=== PATIENT | female | born 1990 | race Hispanic/Latino ===

== ENCOUNTER 2020-09-25 16:34 | Emergency (ER) | payer SELFPAY ==
[~2020-09-25] VITALS: Ht 157.5 cm; Wt 113.4 kg
[2020-09-25] MEDS ORDERED: SODIUM CHLORIDE 0.9% 1000ML 1,000 ML IV SCH (17:00)
[2020-09-25] MEDS ORDERED: SODIUM CHLORIDE 0.9% 1000ML 1,000 ML ONE (17:06)
[2020-09-25] MEDS ORDERED: ACETAMINOPHEN 325 MG TAB PO ONE (17:30)
[2020-09-25 18:54] VITALS: BP 139/90
== END 2020-09-25 18:55 | disposition home or self-care (01) ==
LOC: ER 16:45
DX: U07.1 COVID-19 (principal); J18.9 Pneumonia, unspecified organism
CPT/HCPCS: 71045; 93005; 99283; J7030

== ENCOUNTER 2020-09-27 17:55 | Inpatient (IN) | payer SELFPAY ==
[~2020-09-27] VITALS: Ht 157.5 cm; Wt 128.4 kg
[2020-09-27] MEDS ORDERED: ONDANSETRON HCL INJ 2MG/ML 2ML 2 MG/ML VIAL IV STA (18:24)
[2020-09-27] MEDS ORDERED: DEXAMETHASONE SOD PHOS 10 MG/1 ML VIAL IV ONE (18:30)
[2020-09-27] MEDS ORDERED: ASPIRIN 81 MG CHEW TAB PO ONE ×2 (18:30→20:15)
[2020-09-27 18:39] LABS: BASOPHILS % 0.2 % (0.0-1.0); HEMATOCRIT 41.5 % (34.2-44.1); HEMOGLOBIN 13.4 g/dL (12.0-16.0); LYMPHOCYTES # (AUTO) 0.8 (1.0-3.2); LYMPHOCYTES % 12.9 % (18.0-39.1); MEAN CORPUSCULAR HGB CONC 32.3 g/dL (31-35); MEAN CORPUSCULAR VOLUME 80.6 fL (81-99); MONOCYTES # (AUTO) 0.2 (0.2-0.8); MONOCYTES % 2.7 % (4.4-11.3); NEUTROPHILS # (AUTO) 4.9 (2.1-6.9); NEUTROPHILS % 83.7 % (38.7-80.0); PLATELET COUNT 273 x10e3/uL (140-360); RED BLOOD COUNT 5.15 x10e6/uL (3.6-5.1); RED CELL DISTRIBUTION WIDTH 15.6 % (11.7-14.4)
[2020-09-27 18:57] LABS: ALANINE AMINOTRANSFERASE 37 IU/L (0-55); ALBUMIN 3.5 g/dL (3.5-5.0); ALBUMIN/GLOBULIN RATIO 0.8 (0.8-2.0); ALKALINE PHOSPHATASE 77 IU/L (40-150); ANION GAP 23.5 mmol/L (8-16); CALCIUM 8.3 mg/dL (8.4-10.2); CARBON DIOXIDE 17 mmol/L (22-29); CHLORIDE 100 mmol/L (98-107); CREATINE KINASE 75 IU/L (29-168); CREATININE, SERUM 0.74 mg/dL (0.57-1.11); EST GLOMERULAR FILTRATION RATE > 60 ML/MIN (60-); GLUCOSE 333 mg/dL (74-118); POTASSIUM 3.5 mmol/L (3.5-5.1); SODIUM 137 mmol/L (136-145)
[2020-09-27 19:12] LABS: BLOOD UREA NITROGEN < 5 mg/dL (7-26); BUN/CREATININE RATIO 7 (6-25)
[2020-09-27] MEDS ORDERED: AZITHROMYCIN 500MG/NS 250 ML 250 ML IV SCH (22:45)
[2020-09-27] MEDS ORDERED: METOPROLOL TARTRATE INJ 1 MG/ML VIAL IV PRN (22:45)
[2020-09-28] VITALS (7 sets, daily range): BP systolic 109–128; BP diastolic 51–74
[2020-09-28] MEDS: CEFTRIAXONE SOD 1 GM/NS 50 ML 50 ML IV SCH ×2 (00:02→22:46)
[2020-09-28] MEDS: ZINC SULFATE 220 MG CAP PO SCH ×2 (00:25→09:04)
[2020-09-28] MEDS: ENOXAPARIN 30 MG/0.3 ML SYR SC SCH ×3 (00:26→21:00)
[2020-09-28] MEDS: CHOLECALCIFEROL 400 UNIT TAB PO SCH ×2 (02:12→09:04)
[2020-09-28 03:16] LABS: BASOPHILS % 0.2 % (0.0-1.0); HEMATOCRIT 40.5 % (34.2-44.1); HEMOGLOBIN 12.9 g/dL (12.0-16.0); LYMPHOCYTES # (AUTO) 0.5 (1.0-3.2); LYMPHOCYTES % 9.2 % (18.0-39.1); MEAN CORPUSCULAR HEMOGLOBIN 25.6 pg (28-32); MEAN CORPUSCULAR HGB CONC 31.9 g/dL (31-35); MEAN CORPUSCULAR VOLUME 80.4 fL (81-99); MONOCYTES # (AUTO) 0.1 (0.2-0.8); MONOCYTES % 1.3 % (4.4-11.3); NEUTROPHILS # (AUTO) 4.8 (2.1-6.9); NEUTROPHILS % 88.7 % (38.7-80.0); PLATELET COUNT 285 x10e3/uL (140-360); RED BLOOD COUNT 5.04 x10e6/uL (3.6-5.1); RED CELL DISTRIBUTION WIDTH 15.6 % (11.7-14.4)
[2020-09-28 03:37] LABS: CREATINE KINASE MB 0.4 ng/mL (0-5.0)
[2020-09-28 03:50] LABS: ALANINE AMINOTRANSFERASE 34 IU/L (0-55); ALBUMIN 3.4 g/dL (3.5-5.0); ALBUMIN/GLOBULIN RATIO 0.8 (0.8-2.0); ALKALINE PHOSPHATASE 77 IU/L (40-150); ANION GAP 24.9 mmol/L (8-16); BLOOD UREA NITROGEN 8 mg/dL (7-26); BUN/CREATININE RATIO 10 (6-25); CALCIUM 8.5 mg/dL (8.4-10.2); CARBON DIOXIDE 14 mmol/L (22-29); CHLORIDE 103 mmol/L (98-107); CREATININE, SERUM 0.81 mg/dL (0.57-1.11); EST GLOMERULAR FILTRATION RATE > 60 ML/MIN (60-); POTASSIUM 3.9 mmol/L (3.5-5.1); SODIUM 138 mmol/L (136-145)
[2020-09-28 03:53] LABS: GLUCOSE 443 mg/dL (74-118)
[2020-09-28] MEDS ORDERED: INSULIN REGULAR, HUMAN 100 UNIT/1 ML 3ML VIAL SQ ONE (04:45)
[2020-09-28] MEDS ORDERED: INSULIN REGULAR, HUMAN 100 UNIT/1 ML 3ML VIAL ONE (04:53)
[2020-09-28] MEDS ORDERED: SODIUM CHLORIDE 0.9% 1000ML 1,000 ML IV STA (06:14)
[2020-09-28] MEDS ORDERED: INSULIN REGULAR, HUMAN 100 UNIT/1 ML 3ML VIAL IV ONE (06:15)
[2020-09-28] MEDS ORDERED: DEXTROSE 50% SYRINGE 50 ML IV PRN ×3 (06:15→14:00)
[2020-09-28] MEDS ORDERED: INSULIN REGULAR, HUMAN 3ML VL 100 UNIT in SODIUM CHLORIDE 0.9% 100 ML 99 ML IV SCH ×4 (06:35→08:30)
[2020-09-28] MEDS ORDERED: SODIUM CHLORIDE 0.9% 100 ML ONE (07:35)
[2020-09-28] MEDS ORDERED: POTASSIUM CHLORIDE 20MEQ/100ML 200 ML IV PRN (08:00)
[2020-09-28] MEDS ORDERED: MAGNESIUM SULF 1GRAM/DEXTROSE 100 ML IV PRN (08:00)
[2020-09-28] MEDS: ALBUTEROL SULFATE HFA 8GM INHALATION AEROSOL INH SCH ×3 (08:00→22:00)
[2020-09-28] MEDS: IPRATROPIUM BROMIDE INHALER 12.9 GM INH INH SCH ×3 (08:00→22:00)
[2020-09-28] MEDS ORDERED: SODIUM CHLORIDE 0.9% 1000ML 1,000 ML IV ONE (08:00)
[2020-09-28] MEDS ORDERED: DEXTROSE 5%/0.45% SOD CHL 1,000 ML IV SCH (08:00)
[2020-09-28 09:00] LABS: CLARITY,URINE CLEAR (CLEAR); COLOR,URINE YELLOW (YELLOW)
[2020-09-28] MEDS ORDERED: ASCORBIC ACID 500 MG TAB PO SCH (09:00)
[2020-09-28 09:01] LABS: LEUKOCYTE ESTERASE ,URINE NEGATIVE (NEGATIVE); NITRITE,URINE NEGATIVE (NEGATIVE); PROTEIN,URINE DIPSTICK 1+ (NEGATIVE); URINE UROBILINOGEN 0.2 mg/dL (0.2 - 1)
[2020-09-28 09:02] LABS: KETONES,URINE 3+ (NEGATIVE)
[2020-09-28] MEDS: DEXAMETHASONE SOD PHOS INJ 4 MG/ML VIAL IV SCH (09:03)
[2020-09-28 09:16] LABS: BACTERIA,URINE MANY /HPF; EPITHELIAL CELLS,URINE FEW /LPF; TRANSITIONAL EPI CELLS,URINE FEW
[2020-09-28 09:17] LABS: HYALINE CASTS 0-1 (0-1); RENAL EPITHELIAL CELLS,URINE FEW
[2020-09-28 09:41] LABS: ABG HCO3 12 mmol/L (22-26); ABG PCO2 21 mmHg (35-45); ABG PH 7.35 (7.35-7.45); ABG PO2 74 mmHg (80-105); ABG TCO2 12
[2020-09-28 09:51] LABS: ANION GAP 22.4 mmol/L (8-16); BLOOD UREA NITROGEN 9 mg/dL (7-26); BUN/CREATININE RATIO 11 (6-25); CALCIUM 8.2 mg/dL (8.4-10.2); CARBON DIOXIDE 13 mmol/L (22-29); CHLORIDE 107 mmol/L (98-107); CREATININE, SERUM 0.83 mg/dL (0.57-1.11); EST GLOMERULAR FILTRATION RATE > 60 ML/MIN (60-); GLUCOSE 359 mg/dL (74-118); MAGNESIUM 2.4 MG/DL (1.3-2.1); POTASSIUM 3.4 mmol/L (3.5-5.1); SODIUM 139 mmol/L (136-145)
[2020-09-28] MEDS ORDERED: INSULIN LISPRO 100 UNIT/1 ML 3ML VIAL SQ SCH (11:30)
[2020-09-28] MEDS: SODIUM CHLORIDE 0.9% 1000ML 1,000 ML IV SCH ×3 (12:00→16:00)
[2020-09-28 12:38] LABS: ANION GAP 23.3 mmol/L (8-16); BLOOD UREA NITROGEN 8 mg/dL (7-26); BUN/CREATININE RATIO 11 (6-25); CALCIUM 8.4 mg/dL (8.4-10.2); CARBON DIOXIDE 12 mmol/L (22-29); CHLORIDE 109 mmol/L (98-107); CREATININE, SERUM 0.75 mg/dL (0.57-1.11); EST GLOMERULAR FILTRATION RATE > 60 ML/MIN (60-); GLUCOSE 255 mg/dL (74-118); MAGNESIUM 2.3 MG/DL (1.3-2.1); POTASSIUM 3.3 mmol/L (3.5-5.1); SODIUM 141 mmol/L (136-145)
[2020-09-28 13:07] LABS: CREATINE KINASE MB 0.4 ng/mL (0-5.0)
[2020-09-28] MEDS ORDERED: REMDESIVIR 200MG/NS 100ML 200 MG in SODIUM CHLORIDE 0.9% 100 ML 100 ML IV ONE (16:00)
[2020-09-28] MEDS: DEXTROSE 5%/0.45% SOD CHL 1,000 ML IV SCH (16:33)
[2020-09-28 16:45] LABS: ANION GAP 17.9 mmol/L (8-16); BLOOD UREA NITROGEN 7 mg/dL (7-26); BUN/CREATININE RATIO 10 (6-25); CALCIUM 8.3 mg/dL (8.4-10.2); CARBON DIOXIDE 14 mmol/L (22-29); CHLORIDE 112 mmol/L (98-107); CREATININE, SERUM 0.73 mg/dL (0.57-1.11); EST GLOMERULAR FILTRATION RATE > 60 ML/MIN (60-); GLUCOSE 204 mg/dL (74-118); MAGNESIUM 2.3 MG/DL (1.3-2.1); POTASSIUM 3.9 mmol/L (3.5-5.1); SODIUM 140 mmol/L (136-145)
[2020-09-28] MEDS ORDERED: REMDESIVIR 200MG/NS 100ML 200 MG IV SCH (16:45)
[2020-09-28] MEDS: ASCORBIC ACID 500 MG TAB PO SCH (16:57)
[2020-09-29] VITALS (24 sets, daily range): BP systolic 110–138; BP diastolic 59–80
[2020-09-29] MEDS: DEXTROSE 5%/0.45% SOD CHL 1,000 ML IV SCH ×3 (00:30→17:01)
[2020-09-29 01:02] LABS: ANION GAP 14.6 mmol/L (8-16); BLOOD UREA NITROGEN 7 mg/dL (7-26); BUN/CREATININE RATIO 10 (6-25); CARBON DIOXIDE 18 mmol/L (22-29); CHLORIDE 109 mmol/L (98-107); CREATININE, SERUM 0.71 mg/dL (0.57-1.11); EST GLOMERULAR FILTRATION RATE > 60 ML/MIN (60-); GLUCOSE 325 mg/dL (74-118); MAGNESIUM 2.2 MG/DL (1.3-2.1); POTASSIUM 3.6 mmol/L (3.5-5.1); SODIUM 138 mmol/L (136-145)
[2020-09-29 04:38] LABS: HEMOGLOBIN 11.4 g/dL (12.0-16.0); LYMPHOCYTES # (AUTO) 0.8 (1.0-3.2); LYMPHOCYTES % 9.9 % (18.0-39.1); MEAN CORPUSCULAR HEMOGLOBIN 25.4 pg (28-32); MEAN CORPUSCULAR HGB CONC 31.7 g/dL (31-35); MEAN CORPUSCULAR VOLUME 80.4 fL (81-99); MONOCYTES # (AUTO) 0.3 (0.2-0.8); MONOCYTES % 4.2 % (4.4-11.3); NEUTROPHILS # (AUTO) 6.5 (2.1-6.9); NEUTROPHILS % 85.5 % (38.7-80.0); PLATELET COUNT 333 x10e3/uL (140-360); RED BLOOD COUNT 4.48 x10e6/uL (3.6-5.1)
[2020-09-29 05:03] LABS: ALANINE AMINOTRANSFERASE 29 IU/L (0-55); ALBUMIN 2.9 g/dL (3.5-5.0); ALBUMIN/GLOBULIN RATIO 0.8 (0.8-2.0); ALKALINE PHOSPHATASE 67 IU/L (40-150); ANION GAP 13.5 mmol/L (8-16); BLOOD UREA NITROGEN 7 mg/dL (7-26); BUN/CREATININE RATIO 10 (6-25); CALCIUM 7.9 mg/dL (8.4-10.2); CARBON DIOXIDE 19 mmol/L (22-29); CHLORIDE 108 mmol/L (98-107); CREATININE, SERUM 0.67 mg/dL (0.57-1.11); EST GLOMERULAR FILTRATION RATE > 60 ML/MIN (60-); GLUCOSE 313 mg/dL (74-118); POTASSIUM 3.5 mmol/L (3.5-5.1); SODIUM 137 mmol/L (136-145)
[2020-09-29] MEDS: IPRATROPIUM BROMIDE INHALER 12.9 GM INH INH SCH ×3 (06:00→22:00)
[2020-09-29] MEDS: ALBUTEROL SULFATE HFA 8GM INHALATION AEROSOL INH SCH ×3 (06:00→22:15)
[2020-09-29] MEDS: DEXAMETHASONE SOD PHOS INJ 4 MG/ML VIAL IV SCH (08:54)
[2020-09-29] MEDS: ASCORBIC ACID 500 MG TAB PO SCH ×2 (08:55→17:01)
[2020-09-29] MEDS: AZITHROMYCIN 500MG/NS 250 ML 250 ML IV SCH (08:55)
[2020-09-29] MEDS: CHOLECALCIFEROL 400 UNIT TAB PO SCH (08:55)
[2020-09-29] MEDS: ENOXAPARIN 30 MG/0.3 ML SYR SC SCH ×2 (08:55→21:26)
[2020-09-29] MEDS: ZINC SULFATE 220 MG CAP PO SCH (08:55)
[2020-09-29] MEDS ORDERED: ZINC SULFATE 220 MG CAP PO SCH (09:00)
[2020-09-29] MEDS ORDERED: CEFTRIAXONE SOD 2 GM/NS 100 ML 100 ML IV SCH (09:00)
[2020-09-29] MEDS ORDERED: POTASSIUM CHLORIDE 20MEQ/100ML 100 ML IV PRN (09:15)
[2020-09-29] MEDS ORDERED: POTASSIUM CHLORIDE 20MEQ/100ML 200 ML IV ONE (09:15)
[2020-09-29] MEDS ORDERED: CALCIUM CARBONATE 500 MG CHEWABLE TABS PO PRN (09:45)
[2020-09-29] MEDS: REMDESIVIR 100MG/NS 100ML 100 MG in SODIUM CHLORIDE 0.9% 100 ML 100 ML IV SCH (17:01)
[2020-09-29] MEDS: GUAIFENESIN 200 MG/10 ML UDC PO PRN (20:05)
[2020-09-29] MEDS ORDERED: INSULIN GLARGINE 100 UNITS/ML VIAL SQ SCH (21:00)
[2020-09-29] MEDS: CEFTRIAXONE SOD 2 GM/NS 100 ML 100 ML IV SCH (23:14)
[2020-09-29] MEDS: DEXMEDETOMIDINE HCL 200 MCG in SODIUM CHLORIDE 0.9% 50ML 48 ML IV PRN (23:45)
[2020-09-29] MEDS ORDERED: DEXMEDETOMIDINE 200MCG/NS 50ML 50 ML IV ONE (23:49)
[2020-09-30] VITALS (24 sets, daily range): BP systolic 89–148; BP diastolic 47–84
[2020-09-30] MEDS: DEXTROSE 5%/0.45% SOD CHL 1,000 ML IV SCH ×2 (01:25→09:33)
[2020-09-30] MEDS: DEXMEDETOMIDINE HCL 200 MCG in SODIUM CHLORIDE 0.9% 50ML 48 ML IV PRN (01:51)
[2020-09-30] MEDS ORDERED: DEXMEDETOMIDINE 200MCG/NS 50ML 50 ML IV ONE (01:58)
[2020-09-30] MEDS: GUAIFENESIN 200 MG/10 ML UDC PO PRN (02:10)
[2020-09-30 04:46] LABS: HEMATOCRIT 36.2 % (34.2-44.1); HEMOGLOBIN 11.7 g/dL (12.0-16.0); LYMPHOCYTES # (AUTO) 0.8 (1.0-3.2); LYMPHOCYTES % 13.2 % (18.0-39.1); MEAN CORPUSCULAR HEMOGLOBIN 26.4 pg (28-32); MEAN CORPUSCULAR HGB CONC 32.3 g/dL (31-35); MEAN CORPUSCULAR VOLUME 81.5 fL (81-99); MONOCYTES # (AUTO) 0.4 (0.2-0.8); MONOCYTES % 6.3 % (4.4-11.3); NEUTROPHILS # (AUTO) 4.7 (2.1-6.9); NEUTROPHILS % 79.8 % (38.7-80.0); PLATELET COUNT 316 x10e3/uL (140-360); RED BLOOD COUNT 4.44 x10e6/uL (3.6-5.1); RED CELL DISTRIBUTION WIDTH 15.8 % (11.7-14.4)
[2020-09-30 05:11] LABS: ALANINE AMINOTRANSFERASE 16 IU/L (0-55); ALBUMIN 2.7 g/dL (3.5-5.0); ALBUMIN/GLOBULIN RATIO 0.8 (0.8-2.0); ALKALINE PHOSPHATASE 61 IU/L (40-150); ANION GAP 13.4 mmol/L (8-16); BLOOD UREA NITROGEN 6 mg/dL (7-26); BUN/CREATININE RATIO 9 (6-25); CALCIUM 7.6 mg/dL (8.4-10.2); CARBON DIOXIDE 22 mmol/L (22-29); CHLORIDE 111 mmol/L (98-107); CREATININE, SERUM 0.64 mg/dL (0.57-1.11); EST GLOMERULAR FILTRATION RATE > 60 ML/MIN (60-); GLUCOSE 341 mg/dL (74-118); POTASSIUM 3.4 mmol/L (3.5-5.1); SODIUM 143 mmol/L (136-145)
[2020-09-30] MEDS: ALBUTEROL SULFATE HFA 8GM INHALATION AEROSOL INH SCH ×3 (06:00→23:05)
[2020-09-30] MEDS: IPRATROPIUM BROMIDE INHALER 12.9 GM INH INH SCH ×3 (06:00→22:00)
[2020-09-30] MEDS ORDERED: POTASSIUM CHLORIDE 20MEQ/100ML 200 ML IV ONE (09:15)
[2020-09-30] MEDS: DEXAMETHASONE SOD PHOS INJ 4 MG/ML VIAL IV SCH (09:32)
[2020-09-30] MEDS: ASCORBIC ACID 500 MG TAB PO SCH ×2 (09:33→17:27)
[2020-09-30] MEDS: CHOLECALCIFEROL 400 UNIT TAB PO SCH (09:33)
[2020-09-30] MEDS: ZINC SULFATE 220 MG CAP PO SCH (09:33)
[2020-09-30] MEDS: AZITHROMYCIN 500MG/NS 250 ML 250 ML IV SCH (09:33)
[2020-09-30] MEDS: ENOXAPARIN 30 MG/0.3 ML SYR SC SCH ×2 (09:33→20:25)
[2020-09-30] MEDS: REMDESIVIR 100MG/NS 100ML 100 MG in SODIUM CHLORIDE 0.9% 100 ML 100 ML IV SCH (17:28)
[2020-09-30] MEDS: INSULIN REGULAR, HUMAN 3ML VL 100 UNIT in SODIUM CHLORIDE 0.9% 99 ML IV SCH ×4 (20:24→23:29)
[2020-09-30] MEDS: INSULIN GLARGINE 100 UNITS/ML VIAL SQ SCH (20:26)
[2020-09-30] MEDS ORDERED: SODIUM CHLORIDE 0.9% 1000ML 1,000 ML ONE (20:42)
[2020-09-30] MEDS: LORAZEPAM INJ 2 MG/ML VIAL IV PRN (21:16)
[2020-09-30] MEDS: GUAIFENESIN/CODEINE 10 ML CUP PO PRN (21:16)
[2020-09-30] MEDS: CEFTRIAXONE SOD 2 GM/NS 100 ML 100 ML IV SCH (23:30)
[2020-10-01] VITALS (24 sets, daily range): BP systolic 119–144; BP diastolic 41–89
[2020-10-01] MEDS: GUAIFENESIN/CODEINE 10 ML CUP PO PRN (04:28)
[2020-10-01] MEDS: LORAZEPAM INJ 2 MG/ML VIAL IV PRN ×2 (04:28→23:35)
[2020-10-01] MEDS: INSULIN REGULAR, HUMAN 3ML VL 100 UNIT in SODIUM CHLORIDE 0.9% 99 ML IV SCH ×2 (04:29)
[2020-10-01] MEDS ORDERED: SODIUM CHLORIDE 0.9% 1000ML 1,000 ML IV SCH (05:30)
[2020-10-01 06:09] LABS: BASOPHILS % 0.2 % (0.0-1.0); EOSINOPHILS % 0.2 % (0.0-6.0); HEMATOCRIT 35.8 % (34.2-44.1); HEMOGLOBIN 11.5 g/dL (12.0-16.0); LYMPHOCYTES # (AUTO) 1.2 (1.0-3.2); LYMPHOCYTES % 21.7 % (18.0-39.1); MEAN CORPUSCULAR HEMOGLOBIN 26.1 pg (28-32); MEAN CORPUSCULAR HGB CONC 32.1 g/dL (31-35); MEAN CORPUSCULAR VOLUME 81.2 fL (81-99); MONOCYTES # (AUTO) 0.4 (0.2-0.8); MONOCYTES % 7.3 % (4.4-11.3); NEUTROPHILS # (AUTO) 3.6 (2.1-6.9); NEUTROPHILS % 67.6 % (38.7-80.0); PLATELET COUNT 343 x10e3/uL (140-360); RED BLOOD COUNT 4.41 x10e6/uL (3.6-5.1); RED CELL DISTRIBUTION WIDTH 15.7 % (11.7-14.4)
[2020-10-01 06:31] LABS: INR 1.05; PROTHROMBIN TIME 14.2 seconds (11.9-14.5)
[2020-10-01 06:32] LABS: PARTIAL THROMBOPLASTIN TIME 27.5 seconds (23.8-35.5)
[2020-10-01 06:47] LABS: ALANINE AMINOTRANSFERASE 17 IU/L (0-55); ALBUMIN 2.7 g/dL (3.5-5.0); ALBUMIN/GLOBULIN RATIO 0.8 (0.8-2.0); ALKALINE PHOSPHATASE 64 IU/L (40-150); BLOOD UREA NITROGEN 7 mg/dL (7-26); BUN/CREATININE RATIO 13 (6-25); CALCIUM 7.6 mg/dL (8.4-10.2); CARBON DIOXIDE 25 mmol/L (22-29); CHLORIDE 108 mmol/L (98-107); CREATININE, SERUM 0.56 mg/dL (0.57-1.11); EST GLOMERULAR FILTRATION RATE > 60 ML/MIN (60-); GLUCOSE 169 mg/dL (74-118); SODIUM 144 mmol/L (136-145)
[2020-10-01 07:07] LABS: PHOSPHORUS 2.6 MG/DL (2.3-4.7)
[2020-10-01] MEDS: DEXAMETHASONE SOD PHOS INJ 4 MG/ML VIAL IV SCH (07:45)
[2020-10-01] MEDS: AZITHROMYCIN 500MG/NS 250 ML 250 ML IV SCH (07:45)
[2020-10-01] MEDS: ASCORBIC ACID 500 MG TAB PO SCH ×2 (07:46→17:14)
[2020-10-01] MEDS: CHOLECALCIFEROL 400 UNIT TAB PO SCH (07:46)
[2020-10-01] MEDS: ZINC SULFATE 220 MG CAP PO SCH (07:46)
[2020-10-01] MEDS: ENOXAPARIN 30 MG/0.3 ML SYR SC SCH ×2 (07:46→21:30)
[2020-10-01] MEDS: ALBUTEROL SULFATE HFA 8GM INHALATION AEROSOL INH SCH ×2 (08:24→23:55)
[2020-10-01] MEDS: IPRATROPIUM BROMIDE INHALER 12.9 GM INH INH SCH ×3 (08:24→22:00)
[2020-10-01] MEDS ORDERED: POTASSIUM CHLORIDE 20MEQ/100ML 200 ML IV ONE (09:45)
[2020-10-01] MEDS: POTASSIUM CHLORIDE 20MEQ/100ML 100 ML IV SCH ×2 (14:54→14:55)
[2020-10-01] MEDS: REMDESIVIR 100MG/NS 100ML 100 MG in SODIUM CHLORIDE 0.9% 100 ML 100 ML IV SCH (17:13)
[2020-10-01 17:49] LABS: ABG HCO3 24 mmol/L (22-26); ABG PCO2 33 mmHg (35-45); ABG PH 7.47 (7.35-7.45); ABG PO2 65 mmHg (80-105); ABG TCO2 25
[2020-10-01] MEDS: INSULIN GLARGINE 100 UNITS/ML VIAL SQ SCH (21:30)
[2020-10-01] MEDS: POTASSIUM CHLORIDE 20MEQ/100ML 100 ML IV PRN (21:30)
[2020-10-01] MEDS: CEFTRIAXONE SOD 2 GM/NS 100 ML 100 ML IV SCH (23:00)
[2020-10-02] VITALS (25 sets, daily range): BP systolic 111–133; BP diastolic 59–83
[2020-10-02] MEDS: ALBUTEROL SULFATE HFA 8GM INHALATION AEROSOL INH SCH ×3 (00:10→14:00)
[2020-10-02 04:37] LABS: BASOPHILS % 0.3 % (0.0-1.0); EOSINOPHILS % 0.7 % (0.0-6.0); HEMATOCRIT 35.3 % (34.2-44.1); HEMOGLOBIN 11.3 g/dL (12.0-16.0); LYMPHOCYTES # (AUTO) 1.5 (1.0-3.2); LYMPHOCYTES % 24.3 % (18.0-39.1); MEAN CORPUSCULAR VOLUME 81.3 fL (81-99); MONOCYTES # (AUTO) 0.5 (0.2-0.8); NEUTROPHILS # (AUTO) 3.7 (2.1-6.9); NEUTROPHILS % 61.7 % (38.7-80.0); PLATELET COUNT 338 x10e3/uL (140-360); RED BLOOD COUNT 4.34 x10e6/uL (3.6-5.1); RED CELL DISTRIBUTION WIDTH 15.4 % (11.7-14.4)
[2020-10-02 04:58] LABS: ALANINE AMINOTRANSFERASE 18 IU/L (0-55); ALBUMIN 2.7 g/dL (3.5-5.0); ALBUMIN/GLOBULIN RATIO 0.9 (0.8-2.0); ALKALINE PHOSPHATASE 63 IU/L (40-150); ANION GAP 11.1 mmol/L (8-16); BLOOD UREA NITROGEN 6 mg/dL (7-26); BUN/CREATININE RATIO 12 (6-25); CALCIUM 7.5 mg/dL (8.4-10.2); CARBON DIOXIDE 27 mmol/L (22-29); CHLORIDE 106 mmol/L (98-107); CREATININE, SERUM 0.52 mg/dL (0.57-1.11); EST GLOMERULAR FILTRATION RATE > 60 ML/MIN (60-); GLUCOSE 147 mg/dL (74-118); POTASSIUM 3.1 mmol/L (3.5-5.1); SODIUM 141 mmol/L (136-145)
[2020-10-02] MEDS: POTASSIUM CHLORIDE 20MEQ/100ML 100 ML IV PRN (05:35)
[2020-10-02] MEDS: GUAIFENESIN/CODEINE 10 ML CUP PO PRN ×3 (05:35→23:05)
[2020-10-02] MEDS: IPRATROPIUM BROMIDE INHALER 12.9 GM INH INH SCH ×3 (06:00→22:00)
[2020-10-02] MEDS: AZITHROMYCIN 500MG/NS 250 ML 250 ML IV SCH (08:04)
[2020-10-02] MEDS: ZINC SULFATE 220 MG CAP PO SCH (08:04)
[2020-10-02] MEDS: DEXAMETHASONE SOD PHOS INJ 4 MG/ML VIAL IV SCH (08:04)
[2020-10-02] MEDS: CHOLECALCIFEROL 400 UNIT TAB PO SCH (08:04)
[2020-10-02] MEDS: ASCORBIC ACID 500 MG TAB PO SCH ×2 (08:04→17:21)
[2020-10-02] MEDS: ENOXAPARIN 30 MG/0.3 ML SYR SC SCH ×2 (08:04→21:10)
[2020-10-02 12:28] LABS: INR 1.01; PROTHROMBIN TIME 13.8 seconds (11.9-14.5)
[2020-10-02 12:29] LABS: PARTIAL THROMBOPLASTIN TIME 24.3 seconds (23.8-35.5)
[2020-10-02] MEDS: REMDESIVIR 100MG/NS 100ML 100 MG in SODIUM CHLORIDE 0.9% 100 ML 100 ML IV SCH (17:21)
[2020-10-02] MEDS: INSULIN GLARGINE 100 UNITS/ML VIAL SQ SCH (21:10)
[2020-10-02 21:39] LABS: MAGNESIUM 2.1 MG/DL (1.3-2.1); POTASSIUM 3.4 mmol/L (3.5-5.1)
[2020-10-02] MEDS: CEFTRIAXONE SOD 2 GM/NS 100 ML 100 ML IV SCH (22:30)
[2020-10-02] MEDS: LORAZEPAM INJ 2 MG/ML VIAL IV PRN (23:05)
[2020-10-03] VITALS (25 sets, daily range): BP systolic 103–136; BP diastolic 50–83
[2020-10-03] MEDS ORDERED: DEXTROSE 5%/0.45% SOD CHL 1,000 ML IV ONE (01:02)
[2020-10-03 04:54] LABS: BASOPHILS % 0.3 % (0.0-1.0); EOSINOPHILS # (AUTO) 0.1 (0.0-0.4); EOSINOPHILS % 0.9 % (0.0-6.0); HEMATOCRIT 37.2 % (34.2-44.1); HEMOGLOBIN 11.7 g/dL (12.0-16.0); LYMPHOCYTES # (AUTO) 1.3 (1.0-3.2); LYMPHOCYTES % 20.8 % (18.0-39.1); MEAN CORPUSCULAR HEMOGLOBIN 25.6 pg (28-32); MEAN CORPUSCULAR HGB CONC 31.5 g/dL (31-35); MEAN CORPUSCULAR VOLUME 81.4 fL (81-99); MONOCYTES # (AUTO) 0.4 (0.2-0.8); MONOCYTES % 6.6 % (4.4-11.3); NEUTROPHILS # (AUTO) 4.2 (2.1-6.9); PLATELET COUNT 382 x10e3/uL (140-360); RED BLOOD COUNT 4.57 x10e6/uL (3.6-5.1); RED CELL DISTRIBUTION WIDTH 15.6 % (11.7-14.4)
[2020-10-03 05:20] LABS: ALANINE AMINOTRANSFERASE 21 IU/L (0-55); ALBUMIN 2.9 g/dL (3.5-5.0); ALKALINE PHOSPHATASE 66 IU/L (40-150); ANION GAP 13.1 mmol/L (8-16); BLOOD UREA NITROGEN 8 mg/dL (7-26); BUN/CREATININE RATIO 15 (6-25); CALCIUM 7.8 mg/dL (8.4-10.2); CARBON DIOXIDE 26 mmol/L (22-29); CHLORIDE 105 mmol/L (98-107); CREATININE, SERUM 0.54 mg/dL (0.57-1.11); EST GLOMERULAR FILTRATION RATE > 60 ML/MIN (60-); GLUCOSE 137 mg/dL (74-118); POTASSIUM 3.1 mmol/L (3.5-5.1); SODIUM 141 mmol/L (136-145)
[2020-10-03] MEDS: IPRATROPIUM BROMIDE INHALER 12.9 GM INH INH SCH ×3 (06:00→22:00)
[2020-10-03] MEDS: ALBUTEROL SULFATE HFA 8GM INHALATION AEROSOL INH SCH ×4 (06:00→23:20)
[2020-10-03 09:15] LABS: ANISOCYTOSIS SLIGHT; LYMPHOCYTES % (MANUAL) 15 % (19-48); MONOCYTES % (MANUAL) 8 % (3.4-9.0); NEUTROPHILS % (MANUAL) 77 % (40-74); PLATELET ESTIMATE SLIGHTLY INCREASED; RBC MORPHOLOGY COMMENT NORMAL
[2020-10-03 09:16] LABS: PLATELET MORPHOLOGY COMMENT FEW LARGE
[2020-10-03] MEDS: DEXAMETHASONE SOD PHOS INJ 4 MG/ML VIAL IV SCH (10:22)
[2020-10-03] MEDS: AZITHROMYCIN 500MG/NS 250 ML 250 ML IV SCH (10:22)
[2020-10-03] MEDS: ENOXAPARIN 30 MG/0.3 ML SYR SC SCH ×2 (10:22→21:27)
[2020-10-03] MEDS: ASCORBIC ACID 500 MG TAB PO SCH ×2 (10:22→14:00)
[2020-10-03] MEDS: CHOLECALCIFEROL 400 UNIT TAB PO SCH (10:22)
[2020-10-03] MEDS: ZINC SULFATE 220 MG CAP PO SCH (10:22)
[2020-10-03] MEDS ORDERED: POTASSIUM CHLORIDE 20MEQ/100ML 200 ML IV ONE (12:45)
[2020-10-03] MEDS: INSULIN GLARGINE 100 UNITS/ML VIAL SQ SCH (21:27)
[2020-10-03] MEDS: CEFTRIAXONE SOD 2 GM/NS 100 ML 100 ML IV SCH (21:27)
[2020-10-04] VITALS (13 sets, daily range): BP systolic 109–128; BP diastolic 58–83
[2020-10-04] MEDS: IPRATROPIUM BROMIDE INHALER 12.9 GM INH INH SCH ×4 (00:54→22:00)
[2020-10-04 03:02] LABS: BASOPHILS % 0.2 % (0.0-1.0); EOSINOPHILS % 0.7 % (0.0-6.0); HEMOGLOBIN 11.4 g/dL (12.0-16.0); LYMPHOCYTES # (AUTO) 0.9 (1.0-3.2); LYMPHOCYTES % 15.6 % (18.0-39.1); MEAN CORPUSCULAR HEMOGLOBIN 25.9 pg (28-32); MEAN CORPUSCULAR HGB CONC 31.7 g/dL (31-35); MEAN CORPUSCULAR VOLUME 81.8 fL (81-99); MONOCYTES # (AUTO) 0.4 (0.2-0.8); MONOCYTES % 7.5 % (4.4-11.3); NEUTROPHILS # (AUTO) 3.9 (2.1-6.9); NEUTROPHILS % 71.6 % (38.7-80.0); PLATELET COUNT 340 x10e3/uL (140-360); RED CELL DISTRIBUTION WIDTH 15.5 % (11.7-14.4)
[2020-10-04 03:23] LABS: ALANINE AMINOTRANSFERASE 17 IU/L (0-55); ALBUMIN 2.7 g/dL (3.5-5.0); ALBUMIN/GLOBULIN RATIO 0.9 (0.8-2.0); ALKALINE PHOSPHATASE 63 IU/L (40-150); ANION GAP 13.4 mmol/L (8-16); BLOOD UREA NITROGEN 6 mg/dL (7-26); BUN/CREATININE RATIO 12 (6-25); CALCIUM 7.7 mg/dL (8.4-10.2); CARBON DIOXIDE 24 mmol/L (22-29); CHLORIDE 106 mmol/L (98-107); CREATININE, SERUM 0.49 mg/dL (0.57-1.11); EST GLOMERULAR FILTRATION RATE > 60 ML/MIN (60-); GLUCOSE 129 mg/dL (74-118); POTASSIUM 3.4 mmol/L (3.5-5.1); SODIUM 140 mmol/L (136-145)
[2020-10-04] MEDS: ALBUTEROL SULFATE HFA 8GM INHALATION AEROSOL INH SCH ×3 (06:00→21:30)
[2020-10-04] MEDS: ASCORBIC ACID 500 MG TAB PO SCH ×2 (08:56→17:42)
[2020-10-04] MEDS: ZINC SULFATE 220 MG CAP PO SCH (08:56)
[2020-10-04] MEDS: DEXAMETHASONE SOD PHOS INJ 4 MG/ML VIAL IV SCH (08:56)
[2020-10-04] MEDS: ENOXAPARIN 30 MG/0.3 ML SYR SC SCH ×2 (08:56→20:08)
[2020-10-04] MEDS: CHOLECALCIFEROL 400 UNIT TAB PO SCH (08:56)
[2020-10-04] MEDS ORDERED: DEXAMETHASONE SOD PHOS 10 MG/1 ML VIAL IV SCH (09:00)
[2020-10-04] MEDS: INSULIN GLARGINE 100 UNITS/ML VIAL SQ SCH (21:29)
[2020-10-04] MEDS: CEFTRIAXONE SOD 2 GM/NS 100 ML 100 ML IV SCH (21:30)
[2020-10-05] VITALS (26 sets, daily range): BP systolic 105–133; BP diastolic 57–74
[2020-10-05 04:09] LABS: BASOPHILS % 0.2 % (0.0-1.0); EOSINOPHILS # (AUTO) 0.1 (0.0-0.4); EOSINOPHILS % 1.2 % (0.0-6.0); HEMOGLOBIN 11.5 g/dL (12.0-16.0); LYMPHOCYTES # (AUTO) 1.1 (1.0-3.2); LYMPHOCYTES % 16.1 % (18.0-39.1); MEAN CORPUSCULAR HEMOGLOBIN 25.6 pg (28-32); MEAN CORPUSCULAR HGB CONC 31.1 g/dL (31-35); MEAN CORPUSCULAR VOLUME 82.4 fL (81-99); MONOCYTES # (AUTO) 0.5 (0.2-0.8); MONOCYTES % 7.3 % (4.4-11.3); NEUTROPHILS # (AUTO) 4.8 (2.1-6.9); NEUTROPHILS % 71.9 % (38.7-80.0); PLATELET COUNT 344 x10e3/uL (140-360); RED BLOOD COUNT 4.49 x10e6/uL (3.6-5.1); RED CELL DISTRIBUTION WIDTH 15.5 % (11.7-14.4)
[2020-10-05 04:31] LABS: ALANINE AMINOTRANSFERASE 14 IU/L (0-55); ALBUMIN 2.6 g/dL (3.5-5.0); ALBUMIN/GLOBULIN RATIO 0.9 (0.8-2.0); ALKALINE PHOSPHATASE 73 IU/L (40-150); ANION GAP 14.7 mmol/L (8-16); BLOOD UREA NITROGEN 8 mg/dL (7-26); BUN/CREATININE RATIO 15 (6-25); CALCIUM 7.8 mg/dL (8.4-10.2); CARBON DIOXIDE 25 mmol/L (22-29); CHLORIDE 104 mmol/L (98-107); CREATININE, SERUM 0.52 mg/dL (0.57-1.11); EST GLOMERULAR FILTRATION RATE > 60 ML/MIN (60-); GLUCOSE 166 mg/dL (74-118); POTASSIUM 3.7 mmol/L (3.5-5.1); SODIUM 140 mmol/L (136-145)
[2020-10-05] MEDS: IPRATROPIUM BROMIDE INHALER 12.9 GM INH INH SCH ×4 (06:00→22:00)
[2020-10-05] MEDS: ALBUTEROL SULFATE HFA 8GM INHALATION AEROSOL INH SCH ×3 (07:32→23:05)
[2020-10-05] MEDS: ENOXAPARIN 30 MG/0.3 ML SYR SC SCH ×2 (08:00→22:05)
[2020-10-05] MEDS: CHOLECALCIFEROL 400 UNIT TAB PO SCH (08:00)
[2020-10-05] MEDS: ASCORBIC ACID 500 MG TAB PO SCH ×2 (08:00→18:09)
[2020-10-05] MEDS: DEXAMETHASONE SOD PHOS INJ 4 MG/ML VIAL IV SCH (08:00)
[2020-10-05] MEDS: ZINC SULFATE 220 MG CAP PO SCH (08:00)
[2020-10-05] MEDS: GUAIFENESIN/CODEINE 10 ML CUP PO PRN ×2 (09:14→18:09)
[2020-10-05] MEDS: INSULIN REGULAR, HUMAN 3ML VL 100 UNIT in SODIUM CHLORIDE 0.9% 99 ML IV SCH ×2 (22:05)
[2020-10-05] MEDS: INSULIN GLARGINE 100 UNITS/ML VIAL SQ SCH (22:05)
[2020-10-05] MEDS: CEFTRIAXONE SOD 2 GM/NS 100 ML 100 ML IV SCH (22:05)
[2020-10-06] VITALS (11 sets, daily range): BP systolic 113–129; BP diastolic 59–77
[2020-10-06] MEDS: ALBUTEROL SULFATE HFA 8GM INHALATION AEROSOL INH SCH ×3 (00:30→14:00)
[2020-10-06] MEDS ORDERED: NOREPINEPHRINE 8 MG/D5W 250 ML 250 ML ONE (02:53)
[2020-10-06 05:30] LABS: BASOPHILS % 0.3 % (0.0-1.0); EOSINOPHILS # (AUTO) 0.1 (0.0-0.4); EOSINOPHILS % 0.9 % (0.0-6.0); HEMATOCRIT 37.9 % (34.2-44.1); LYMPHOCYTES # (AUTO) 1.3 (1.0-3.2); LYMPHOCYTES % 17.1 % (18.0-39.1); MEAN CORPUSCULAR HGB CONC 31.7 g/dL (31-35); MONOCYTES # (AUTO) 0.6 (0.2-0.8); MONOCYTES % 8.1 % (4.4-11.3); NEUTROPHILS # (AUTO) 5.3 (2.1-6.9); PLATELET COUNT 354 x10e3/uL (140-360); RED BLOOD COUNT 4.62 x10e6/uL (3.6-5.1); RED CELL DISTRIBUTION WIDTH 15.4 % (11.7-14.4)
[2020-10-06 05:53] LABS: ALANINE AMINOTRANSFERASE 12 IU/L (0-55); ALBUMIN 2.7 g/dL (3.5-5.0); ALBUMIN/GLOBULIN RATIO 0.8 (0.8-2.0); ALKALINE PHOSPHATASE 77 IU/L (40-150); ANION GAP 12.7 mmol/L (8-16); BLOOD UREA NITROGEN 8 mg/dL (7-26); BUN/CREATININE RATIO 15 (6-25); CALCIUM 8.2 mg/dL (8.4-10.2); CARBON DIOXIDE 27 mmol/L (22-29); CHLORIDE 102 mmol/L (98-107); CREATININE, SERUM 0.53 mg/dL (0.57-1.11); EST GLOMERULAR FILTRATION RATE > 60 ML/MIN (60-); GLUCOSE 137 mg/dL (74-118); POTASSIUM 3.7 mmol/L (3.5-5.1); SODIUM 138 mmol/L (136-145)
[2020-10-06] MEDS: IPRATROPIUM BROMIDE INHALER 12.9 GM INH INH SCH ×2 (06:00→14:00)
[2020-10-06] MEDS: CHOLECALCIFEROL 400 UNIT TAB PO SCH (08:26)
[2020-10-06] MEDS: ZINC SULFATE 220 MG CAP PO SCH (08:26)
[2020-10-06] MEDS: ASCORBIC ACID 500 MG TAB PO SCH ×2 (08:26→17:09)
[2020-10-06] MEDS: ENOXAPARIN 30 MG/0.3 ML SYR SC SCH ×2 (08:26→21:56)
[2020-10-06] MEDS: DEXAMETHASONE SOD PHOS INJ 4 MG/ML VIAL IV SCH (08:26)
[2020-10-06] MEDS ORDERED: GUAIFENESIN/CODEINE 10 ML CUP PO PRN (09:00)
[2020-10-06] MEDS: INSULIN REGULAR, HUMAN 3ML VL 100 UNIT in SODIUM CHLORIDE 0.9% 99 ML IV SCH ×4 (12:20→16:42)
[2020-10-06] MEDS: INSULIN GLARGINE 100 UNITS/ML VIAL SQ SCH (21:57)
[2020-10-07] VITALS (16 sets, daily range): BP systolic 101–133; BP diastolic 63–85
[2020-10-07] MEDS: CEFTRIAXONE SOD 2 GM/NS 100 ML 100 ML IV SCH ×2 (00:08→22:45)
[2020-10-07 05:01] LABS: BASOPHILS % 0.2 % (0.0-1.0); EOSINOPHILS # (AUTO) 0.1 (0.0-0.4); EOSINOPHILS % 0.9 % (0.0-6.0); HEMATOCRIT 39.5 % (34.2-44.1); HEMOGLOBIN 12.6 g/dL (12.0-16.0); LYMPHOCYTES # (AUTO) 1.6 (1.0-3.2); LYMPHOCYTES % 18.8 % (18.0-39.1); MEAN CORPUSCULAR HEMOGLOBIN 25.8 pg (28-32); MEAN CORPUSCULAR HGB CONC 31.9 g/dL (31-35); MEAN CORPUSCULAR VOLUME 80.9 fL (81-99); MONOCYTES # (AUTO) 0.6 (0.2-0.8); MONOCYTES % 7.3 % (4.4-11.3); NEUTROPHILS # (AUTO) 6.1 (2.1-6.9); NEUTROPHILS % 71.4 % (38.7-80.0); PLATELET COUNT 382 x10e3/uL (140-360); RED BLOOD COUNT 4.88 x10e6/uL (3.6-5.1); RED CELL DISTRIBUTION WIDTH 15.7 % (11.7-14.4)
[2020-10-07 05:25] LABS: ALANINE AMINOTRANSFERASE 16 IU/L (0-55); ALBUMIN 2.9 g/dL (3.5-5.0); ALBUMIN/GLOBULIN RATIO 0.8 (0.8-2.0); ALKALINE PHOSPHATASE 79 IU/L (40-150); ANION GAP 14.6 mmol/L (8-16); BLOOD UREA NITROGEN 8 mg/dL (7-26); BUN/CREATININE RATIO 16 (6-25); CALCIUM 8.3 mg/dL (8.4-10.2); CARBON DIOXIDE 26 mmol/L (22-29); CHLORIDE 101 mmol/L (98-107); EST GLOMERULAR FILTRATION RATE > 60 ML/MIN (60-); GLUCOSE 107 mg/dL (74-118); POTASSIUM 3.6 mmol/L (3.5-5.1); SODIUM 138 mmol/L (136-145)
[2020-10-07] MEDS: ALBUTEROL SULFATE HFA 8GM INHALATION AEROSOL INH SCH ×3 (06:00→22:00)
[2020-10-07] MEDS: IPRATROPIUM BROMIDE INHALER 12.9 GM INH INH SCH ×3 (06:00→22:00)
[2020-10-07] MEDS: ASCORBIC ACID 500 MG TAB PO SCH ×2 (08:12→16:34)
[2020-10-07] MEDS: CHOLECALCIFEROL 400 UNIT TAB PO SCH (08:12)
[2020-10-07] MEDS: ZINC SULFATE 220 MG CAP PO SCH (08:12)
[2020-10-07] MEDS: ENOXAPARIN 30 MG/0.3 ML SYR SC SCH ×2 (08:12→21:00)
[2020-10-07] MEDS: DEXAMETHASONE SOD PHOS INJ 4 MG/ML VIAL IV SCH (08:12)
[2020-10-07] MEDS ORDERED: BENZONATATE 100 MG CAP PO PRN (09:30)
[2020-10-07] MEDS ORDERED: LORAZEPAM INJ 2 MG/ML VIAL ONE (10:23)
[2020-10-07] MEDS ORDERED: MEROPENEM 1GM 100 ML IV ONE (11:00)
[2020-10-07] MEDS ORDERED: LORAZEPAM INJ 2 MG/ML VIAL IV ONE (11:15)
[2020-10-07] MEDS: INSULIN GLARGINE 100 UNITS/ML VIAL SQ SCH (21:00)
[2020-10-08] VITALS (16 sets, daily range): BP systolic 90–113; BP diastolic 57–86
[2020-10-08 05:44] LABS: BASOPHILS % 0.1 % (0.0-1.0); EOSINOPHILS # (AUTO) 0.1 (0.0-0.4); EOSINOPHILS % 1.1 % (0.0-6.0); HEMOGLOBIN 12.3 g/dL (12.0-16.0); LYMPHOCYTES # (AUTO) 1.7 (1.0-3.2); LYMPHOCYTES % 17.5 % (18.0-39.1); MEAN CORPUSCULAR HGB CONC 31.5 g/dL (31-35); MEAN CORPUSCULAR VOLUME 82.5 fL (81-99); MONOCYTES # (AUTO) 0.9 (0.2-0.8); MONOCYTES % 9.3 % (4.4-11.3); NEUTROPHILS # (AUTO) 6.7 (2.1-6.9); NEUTROPHILS % 70.9 % (38.7-80.0); PLATELET COUNT 368 x10e3/uL (140-360); RED BLOOD COUNT 4.73 x10e6/uL (3.6-5.1); RED CELL DISTRIBUTION WIDTH 15.6 % (11.7-14.4)
[2020-10-08] MEDS: IPRATROPIUM BROMIDE INHALER 12.9 GM INH INH SCH ×3 (06:00→22:00)
[2020-10-08] MEDS: ALBUTEROL SULFATE HFA 8GM INHALATION AEROSOL INH SCH ×3 (06:00→22:00)
[2020-10-08 06:27] LABS: ALANINE AMINOTRANSFERASE 21 IU/L (0-55); ALBUMIN 2.9 g/dL (3.5-5.0); ALBUMIN/GLOBULIN RATIO 0.9 (0.8-2.0); ALKALINE PHOSPHATASE 85 IU/L (40-150); BLOOD UREA NITROGEN 13 mg/dL (7-26); BUN/CREATININE RATIO 24 (6-25); CALCIUM 8.6 mg/dL (8.4-10.2); CARBON DIOXIDE 23 mmol/L (22-29); CHLORIDE 99 mmol/L (98-107); CREATININE, SERUM 0.55 mg/dL (0.57-1.11); EST GLOMERULAR FILTRATION RATE > 60 ML/MIN (60-); GLUCOSE 184 mg/dL (74-118); SODIUM 134 mmol/L (136-145)
[2020-10-08] MEDS: CHOLECALCIFEROL 400 UNIT TAB PO SCH (08:21)
[2020-10-08] MEDS: ASCORBIC ACID 500 MG TAB PO SCH ×2 (08:21→16:49)
[2020-10-08] MEDS: ZINC SULFATE 220 MG CAP PO SCH (08:21)
[2020-10-08] MEDS: ENOXAPARIN 30 MG/0.3 ML SYR SC SCH ×2 (08:21→21:00)
[2020-10-08] MEDS: DEXAMETHASONE SOD PHOS INJ 4 MG/ML VIAL IV SCH (08:21)
[2020-10-08] MEDS: INSULIN GLARGINE 100 UNITS/ML VIAL SQ SCH (21:00)
[2020-10-08] MEDS: CEFTRIAXONE SOD 2 GM/NS 100 ML 100 ML IV SCH (23:30)
[2020-10-09] VITALS (25 sets, daily range): BP systolic 84–113; BP diastolic 49–79
[2020-10-09] MEDS: IPRATROPIUM BROMIDE INHALER 12.9 GM INH INH SCH ×3 (06:00→22:00)
[2020-10-09] MEDS: ALBUTEROL SULFATE HFA 8GM INHALATION AEROSOL INH SCH ×3 (06:00→22:00)
[2020-10-09] MEDS: DEXAMETHASONE SOD PHOS INJ 4 MG/ML VIAL IV SCH ×2 (09:00→17:09)
[2020-10-09] MEDS: ENOXAPARIN 30 MG/0.3 ML SYR SC SCH ×2 (09:21→21:25)
[2020-10-09] MEDS: ZINC SULFATE 220 MG CAP PO SCH (09:21)
[2020-10-09] MEDS: ASCORBIC ACID 500 MG TAB PO SCH ×2 (09:21→17:09)
[2020-10-09] MEDS: CHOLECALCIFEROL 400 UNIT TAB PO SCH (09:21)
[2020-10-09] MEDS: INSULIN GLARGINE 100 UNITS/ML VIAL SQ SCH (21:25)
[2020-10-10] VITALS (14 sets, daily range): BP systolic 89–111; BP diastolic 50–89
[2020-10-10] MEDS: IPRATROPIUM BROMIDE INHALER 12.9 GM INH INH SCH ×3 (06:00→22:00)
[2020-10-10] MEDS: ALBUTEROL SULFATE HFA 8GM INHALATION AEROSOL INH SCH ×3 (06:00→22:00)
[2020-10-10] MEDS: ASCORBIC ACID 500 MG TAB PO SCH ×2 (08:19→18:34)
[2020-10-10] MEDS: CHOLECALCIFEROL 400 UNIT TAB PO SCH (08:19)
[2020-10-10] MEDS: ENOXAPARIN 30 MG/0.3 ML SYR SC SCH ×2 (08:19→20:51)
[2020-10-10] MEDS: ZINC SULFATE 220 MG CAP PO SCH (08:19)
[2020-10-10 10:09] LABS: BASOPHILS % 0.2 % (0.0-1.0); EOSINOPHILS % 0.2 % (0.0-6.0); HEMATOCRIT 40.2 % (34.2-44.1); HEMOGLOBIN 12.8 g/dL (12.0-16.0); LYMPHOCYTES # (AUTO) 1.3 (1.0-3.2); LYMPHOCYTES % 11.6 % (18.0-39.1); MEAN CORPUSCULAR HEMOGLOBIN 25.9 pg (28-32); MEAN CORPUSCULAR HGB CONC 31.8 g/dL (31-35); MEAN CORPUSCULAR VOLUME 81.2 fL (81-99); MONOCYTES # (AUTO) 0.7 (0.2-0.8); MONOCYTES % 6.6 % (4.4-11.3); NEUTROPHILS # (AUTO) 8.6 (2.1-6.9); NEUTROPHILS % 80.3 % (38.7-80.0); PLATELET COUNT 366 x10e3/uL (140-360); RED BLOOD COUNT 4.95 x10e6/uL (3.6-5.1); RED CELL DISTRIBUTION WIDTH 15.6 % (11.7-14.4)
[2020-10-10 10:36] LABS: ALANINE AMINOTRANSFERASE 30 IU/L (0-55); ALBUMIN 3.1 g/dL (3.5-5.0); ANION GAP 16.3 mmol/L (8-16); BLOOD UREA NITROGEN 13 mg/dL (7-26); BUN/CREATININE RATIO 22 (6-25); CALCIUM 8.5 mg/dL (8.4-10.2); CARBON DIOXIDE 24 mmol/L (22-29); CHLORIDE 99 mmol/L (98-107); CREATININE, SERUM 0.58 mg/dL (0.57-1.11); EST GLOMERULAR FILTRATION RATE > 60 ML/MIN (60-); GLUCOSE 273 mg/dL (74-118); POTASSIUM 4.3 mmol/L (3.5-5.1); SODIUM 135 mmol/L (136-145)
[2020-10-10 10:37] LABS: ALBUMIN/GLOBULIN RATIO 0.9 (0.8-2.0); ALKALINE PHOSPHATASE 99 IU/L (40-150)
[2020-10-10] MEDS: INSULIN GLARGINE 100 UNITS/ML VIAL SQ SCH (20:51)
[2020-10-11] VITALS (16 sets, daily range): BP systolic 83–114; BP diastolic 42–79
[2020-10-11 04:43] LABS: BASOPHILS % 0.2 % (0.0-1.0); EOSINOPHILS # (AUTO) 0.3 (0.0-0.4); EOSINOPHILS % 2.7 % (0.0-6.0); HEMATOCRIT 40.6 % (34.2-44.1); HEMOGLOBIN 12.7 g/dL (12.0-16.0); LYMPHOCYTES # (AUTO) 2.7 (1.0-3.2); LYMPHOCYTES % 24.3 % (18.0-39.1); MEAN CORPUSCULAR HEMOGLOBIN 25.5 pg (28-32); MEAN CORPUSCULAR HGB CONC 31.3 g/dL (31-35); MEAN CORPUSCULAR VOLUME 81.4 fL (81-99); MONOCYTES # (AUTO) 0.9 (0.2-0.8); MONOCYTES % 7.7 % (4.4-11.3); NEUTROPHILS # (AUTO) 7.1 (2.1-6.9); NEUTROPHILS % 64.1 % (38.7-80.0); PLATELET COUNT 338 x10e3/uL (140-360); RED BLOOD COUNT 4.99 x10e6/uL (3.6-5.1); RED CELL DISTRIBUTION WIDTH 15.9 % (11.7-14.4)
[2020-10-11 05:03] LABS: ANION GAP 14.8 mmol/L (8-16); BLOOD UREA NITROGEN 15 mg/dL (7-26); BUN/CREATININE RATIO 28 (6-25); CALCIUM 8.4 mg/dL (8.4-10.2); CARBON DIOXIDE 25 mmol/L (22-29); CHLORIDE 102 mmol/L (98-107); CREATININE, SERUM 0.54 mg/dL (0.57-1.11); EST GLOMERULAR FILTRATION RATE > 60 ML/MIN (60-); GLUCOSE 121 mg/dL (74-118); POTASSIUM 3.8 mmol/L (3.5-5.1); SODIUM 138 mmol/L (136-145)
[2020-10-11] MEDS: IPRATROPIUM BROMIDE INHALER 12.9 GM INH INH SCH ×3 (06:00→22:00)
[2020-10-11] MEDS: ALBUTEROL SULFATE HFA 8GM INHALATION AEROSOL INH SCH ×3 (06:00→22:00)
[2020-10-11] MEDS: ENOXAPARIN 30 MG/0.3 ML SYR SC SCH ×2 (09:03→20:13)
[2020-10-11] MEDS: CHOLECALCIFEROL 400 UNIT TAB PO SCH (09:03)
[2020-10-11] MEDS: ZINC SULFATE 220 MG CAP PO SCH (09:03)
[2020-10-11] MEDS: ASCORBIC ACID 500 MG TAB PO SCH ×2 (09:03→17:43)
[2020-10-11] MEDS ORDERED: DEXTROSE 50% SYRINGE 50 ML IV PRN (09:30)
[2020-10-11] MEDS: INSULIN LISPRO 100 UNIT/1 ML 3ML VIAL SQ SCH ×2 (11:30→16:52)
[2020-10-11] MEDS: INSULIN REGULAR, HUMAN 100 UNIT/1 ML 3ML VIAL SQ SCH ×3 (11:30→20:17)
[2020-10-11] MEDS: INSULIN GLARGINE 100 UNITS/ML VIAL SQ SCH (20:17)
[2020-10-12] VITALS (9 sets, daily range): BP systolic 102–113; BP diastolic 62–78
[2020-10-12] MEDS: ALBUTEROL SULFATE HFA 8GM INHALATION AEROSOL INH SCH (06:00)
[2020-10-12] MEDS: IPRATROPIUM BROMIDE INHALER 12.9 GM INH INH SCH ×3 (06:00→22:00)
[2020-10-12] MEDS: INSULIN LISPRO 100 UNIT/1 ML 3ML VIAL SQ SCH ×3 (07:30→16:45)
[2020-10-12] MEDS: INSULIN REGULAR, HUMAN 100 UNIT/1 ML 3ML VIAL SQ SCH ×4 (07:30→20:26)
[2020-10-12] MEDS: ZINC SULFATE 220 MG CAP PO SCH (08:26)
[2020-10-12] MEDS: CHOLECALCIFEROL 400 UNIT TAB PO SCH (08:26)
[2020-10-12] MEDS: ASCORBIC ACID 500 MG TAB PO SCH ×2 (08:26→16:45)
[2020-10-12] MEDS: ENOXAPARIN 30 MG/0.3 ML SYR SC SCH ×2 (08:26→20:25)
[2020-10-12] MEDS: LEVALBUTEROL 15 GM AERO IH SCH ×3 (08:33→19:00)
[2020-10-12] MEDS: ALPRAZOLAM 0.25 MG TAB PO PRN ×2 (09:03→16:45)
[2020-10-12] MEDS: INSULIN GLARGINE 100 UNITS/ML VIAL SQ SCH (20:27)
[2020-10-13] VITALS (7 sets, daily range): BP systolic 95–106; BP diastolic 58–67
[2020-10-13] MEDS: LEVALBUTEROL 15 GM AERO IH SCH ×4 (01:00→19:00)
[2020-10-13 04:54] LABS: BASOPHILS % 0.2 % (0.0-1.0); EOSINOPHILS # (AUTO) 0.3 (0.0-0.4); EOSINOPHILS % 3.1 % (0.0-6.0); HEMATOCRIT 42.2 % (34.2-44.1); HEMOGLOBIN 13.3 g/dL (12.0-16.0); LYMPHOCYTES # (AUTO) 2.6 (1.0-3.2); LYMPHOCYTES % 29.6 % (18.0-39.1); MEAN CORPUSCULAR HEMOGLOBIN 26.1 pg (28-32); MEAN CORPUSCULAR HGB CONC 31.5 g/dL (31-35); MEAN CORPUSCULAR VOLUME 82.9 fL (81-99); MONOCYTES # (AUTO) 0.7 (0.2-0.8); MONOCYTES % 8.4 % (4.4-11.3); NEUTROPHILS % 57.9 % (38.7-80.0); PLATELET COUNT 326 x10e3/uL (140-360); RED BLOOD COUNT 5.09 x10e6/uL (3.6-5.1); RED CELL DISTRIBUTION WIDTH 15.8 % (11.7-14.4)
[2020-10-13] MEDS: IPRATROPIUM BROMIDE INHALER 12.9 GM INH INH SCH ×3 (06:00→21:02)
[2020-10-13] MEDS: ENOXAPARIN 30 MG/0.3 ML SYR SC SCH ×2 (09:32→21:01)
[2020-10-13] MEDS: CHOLECALCIFEROL 400 UNIT TAB PO SCH (09:32)
[2020-10-13] MEDS: ASCORBIC ACID 500 MG TAB PO SCH ×2 (09:32→17:30)
[2020-10-13] MEDS: ZINC SULFATE 220 MG CAP PO SCH (09:32)
[2020-10-13] MEDS: ALPRAZOLAM 0.25 MG TAB PO PRN ×2 (09:33→21:57)
[2020-10-13] MEDS: INSULIN REGULAR, HUMAN 100 UNIT/1 ML 3ML VIAL SQ SCH ×4 (09:34→20:58)
[2020-10-13] MEDS: INSULIN LISPRO 100 UNIT/1 ML 3ML VIAL SQ SCH ×3 (09:35→17:00)
[2020-10-13] MEDS: INSULIN GLARGINE 100 UNITS/ML VIAL SQ SCH (20:58)
[2020-10-14] VITALS (8 sets, daily range): BP systolic 93–115; BP diastolic 63–79
[2020-10-14] MEDS: LEVALBUTEROL 15 GM AERO IH SCH ×5 (01:00→19:00)
[2020-10-14] MEDS: IPRATROPIUM BROMIDE INHALER 12.9 GM INH INH SCH ×3 (05:10→21:33)
[2020-10-14] MEDS: INSULIN REGULAR, HUMAN 100 UNIT/1 ML 3ML VIAL SQ SCH ×4 (07:30→21:31)
[2020-10-14] MEDS: INSULIN LISPRO 100 UNIT/1 ML 3ML VIAL SQ SCH ×3 (07:30→16:10)
[2020-10-14] MEDS: ASCORBIC ACID 500 MG TAB PO SCH ×2 (09:04→17:03)
[2020-10-14] MEDS: CHOLECALCIFEROL 400 UNIT TAB PO SCH (09:04)
[2020-10-14] MEDS: ENOXAPARIN 30 MG/0.3 ML SYR SC SCH ×2 (09:04→21:30)
[2020-10-14] MEDS: ZINC SULFATE 50 MG CAP PO SCH (09:04)
[2020-10-14] MEDS: ALPRAZOLAM 0.25 MG TAB PO PRN ×2 (12:17→19:16)
[2020-10-14] MEDS: INSULIN GLARGINE 100 UNITS/ML VIAL SQ SCH (21:31)
[2020-10-15] VITALS (12 sets, daily range): BP systolic 108–121; BP diastolic 66–72
[2020-10-15] MEDS: LEVALBUTEROL 15 GM AERO IH SCH ×4 (01:00→17:35)
[2020-10-15] MEDS: IPRATROPIUM BROMIDE INHALER 12.9 GM INH INH SCH ×3 (05:04→21:41)
[2020-10-15 05:50] LABS: BASOPHILS % 0.1 % (0.0-1.0); EOSINOPHILS # (AUTO) 0.2 (0.0-0.4); EOSINOPHILS % 2.7 % (0.0-6.0); HEMATOCRIT 39.2 % (34.2-44.1); HEMOGLOBIN 12.5 g/dL (12.0-16.0); LYMPHOCYTES # (AUTO) 1.8 (1.0-3.2); LYMPHOCYTES % 25.1 % (18.0-39.1); MEAN CORPUSCULAR HEMOGLOBIN 26.3 pg (28-32); MEAN CORPUSCULAR HGB CONC 31.9 g/dL (31-35); MEAN CORPUSCULAR VOLUME 82.4 fL (81-99); MONOCYTES # (AUTO) 0.8 (0.2-0.8); MONOCYTES % 11.8 % (4.4-11.3); NEUTROPHILS # (AUTO) 4.2 (2.1-6.9); NEUTROPHILS % 59.7 % (38.7-80.0); PLATELET COUNT 267 x10e3/uL (140-360); RED BLOOD COUNT 4.76 x10e6/uL (3.6-5.1); RED CELL DISTRIBUTION WIDTH 16.3 % (11.7-14.4)
[2020-10-15 06:01] LABS: ALANINE AMINOTRANSFERASE 37 IU/L (0-55); ALBUMIN/GLOBULIN RATIO 0.9 (0.8-2.0); ALKALINE PHOSPHATASE 77 IU/L (40-150); ANION GAP 11.7 mmol/L (8-16); BLOOD UREA NITROGEN 8 mg/dL (7-26); BUN/CREATININE RATIO 13 (6-25); CALCIUM 8.4 mg/dL (8.4-10.2); CARBON DIOXIDE 26 mmol/L (22-29); CHLORIDE 103 mmol/L (98-107); EST GLOMERULAR FILTRATION RATE > 60 ML/MIN (60-); GLUCOSE 160 mg/dL (74-118); POTASSIUM 3.7 mmol/L (3.5-5.1); SODIUM 137 mmol/L (136-145)
[2020-10-15] MEDS ORDERED: CHOLESTYRAMINE 4 GM PACKET PO PRN (08:30)
[2020-10-15] MEDS: ALPRAZOLAM 0.25 MG TAB PO PRN ×2 (08:50→19:33)
[2020-10-15] MEDS: ZINC SULFATE 50 MG CAP PO SCH (09:18)
[2020-10-15] MEDS: ENOXAPARIN 30 MG/0.3 ML SYR SC SCH ×2 (09:18→19:33)
[2020-10-15] MEDS: INSULIN LISPRO 100 UNIT/1 ML 3ML VIAL SQ SCH ×3 (09:18→16:51)
[2020-10-15] MEDS: INSULIN REGULAR, HUMAN 100 UNIT/1 ML 3ML VIAL SQ SCH ×4 (09:18→21:13)
[2020-10-15] MEDS: CHOLECALCIFEROL 400 UNIT TAB PO SCH (09:18)
[2020-10-15] MEDS: ASCORBIC ACID 500 MG TAB PO SCH ×2 (10:00→15:31)
[2020-10-15] MEDS: INSULIN GLARGINE 100 UNITS/ML VIAL SQ SCH (21:14)
[2020-10-16] VITALS (8 sets, daily range): BP systolic 101–110; BP diastolic 59–78
[2020-10-16] MEDS: LEVALBUTEROL 15 GM AERO IH SCH ×4 (01:00→19:00)
[2020-10-16] MEDS: IPRATROPIUM BROMIDE INHALER 12.9 GM INH INH SCH ×3 (06:00→22:00)
[2020-10-16] MEDS: ENOXAPARIN 30 MG/0.3 ML SYR SC SCH ×2 (08:20→21:30)
[2020-10-16] MEDS: ZINC SULFATE 50 MG CAP PO SCH (08:20)
[2020-10-16] MEDS: ASCORBIC ACID 500 MG TAB PO SCH ×2 (08:20→16:18)
[2020-10-16] MEDS: CHOLECALCIFEROL 400 UNIT TAB PO SCH (08:20)
[2020-10-16] MEDS: INSULIN REGULAR, HUMAN 100 UNIT/1 ML 3ML VIAL SQ SCH ×4 (08:59→21:30)
[2020-10-16] MEDS: INSULIN LISPRO 100 UNIT/1 ML 3ML VIAL SQ SCH ×3 (09:00→17:24)
[2020-10-16] MEDS ORDERED: DEXAMETHASONE SOD PHOS INJ 4 MG/ML VIAL IV ONE (17:45)
[2020-10-16] MEDS: ALPRAZOLAM 0.25 MG TAB PO PRN (18:07)
[2020-10-16] MEDS: INSULIN GLARGINE 100 UNITS/ML VIAL SQ SCH (21:30)
[2020-10-17] VITALS (8 sets, daily range): BP systolic 100–131; BP diastolic 71–79
[2020-10-17] MEDS: LEVALBUTEROL 15 GM AERO IH SCH ×4 (01:00→19:00)
[2020-10-17] MEDS: IPRATROPIUM BROMIDE INHALER 12.9 GM INH INH SCH ×3 (06:00→22:00)
[2020-10-17] MEDS: INSULIN LISPRO 100 UNIT/1 ML 3ML VIAL SQ SCH ×3 (08:00→16:26)
[2020-10-17] MEDS: INSULIN REGULAR, HUMAN 100 UNIT/1 ML 3ML VIAL SQ SCH ×4 (08:00→21:30)
[2020-10-17] MEDS: CHOLECALCIFEROL 400 UNIT TAB PO SCH (08:55)
[2020-10-17] MEDS: ASCORBIC ACID 500 MG TAB PO SCH ×2 (08:55→16:25)
[2020-10-17] MEDS: ENOXAPARIN 30 MG/0.3 ML SYR SC SCH ×2 (08:56→21:50)
[2020-10-17] MEDS: ZINC SULFATE 50 MG CAP PO SCH (08:56)
[2020-10-17] MEDS ORDERED: INSULIN GLARGINE 100 UNITS/ML VIAL SQ SCH (21:00)
[2020-10-18] VITALS (8 sets, daily range): BP systolic 102–113; BP diastolic 63–84
[2020-10-18] MEDS: LEVALBUTEROL 15 GM AERO IH SCH ×4 (00:23→19:00)
[2020-10-18] MEDS: IPRATROPIUM BROMIDE INHALER 12.9 GM INH INH SCH ×3 (06:00→22:00)
[2020-10-18] MEDS: INSULIN LISPRO 100 UNIT/1 ML 3ML VIAL SQ SCH ×3 (07:30→16:30)
[2020-10-18] MEDS: INSULIN REGULAR, HUMAN 100 UNIT/1 ML 3ML VIAL SQ SCH ×4 (07:30→21:01)
[2020-10-18 08:15] LABS: BASOPHILS % 0.4 % (0.0-1.0); EOSINOPHILS # (AUTO) 0.2 (0.0-0.4); EOSINOPHILS % 2.7 % (0.0-6.0); HEMATOCRIT 38.8 % (34.2-44.1); HEMOGLOBIN 12.2 g/dL (12.0-16.0); LYMPHOCYTES # (AUTO) 2.4 (1.0-3.2); LYMPHOCYTES % 30.2 % (18.0-39.1); MEAN CORPUSCULAR HEMOGLOBIN 25.7 pg (28-32); MEAN CORPUSCULAR HGB CONC 31.4 g/dL (31-35); MEAN CORPUSCULAR VOLUME 81.9 fL (81-99); MONOCYTES # (AUTO) 0.5 (0.2-0.8); MONOCYTES % 6.4 % (4.4-11.3); NEUTROPHILS # (AUTO) 4.8 (2.1-6.9); NEUTROPHILS % 59.7 % (38.7-80.0); PLATELET COUNT 233 x10e3/uL (140-360); RED BLOOD COUNT 4.74 x10e6/uL (3.6-5.1); RED CELL DISTRIBUTION WIDTH 15.9 % (11.7-14.4)
[2020-10-18 08:34] LABS: ANION GAP 15.1 mmol/L (8-16); BLOOD UREA NITROGEN 11 mg/dL (7-26); BUN/CREATININE RATIO 19 (6-25); CALCIUM 8.9 mg/dL (8.4-10.2); CARBON DIOXIDE 24 mmol/L (22-29); CHLORIDE 104 mmol/L (98-107); CREATININE, SERUM 0.58 mg/dL (0.57-1.11); EST GLOMERULAR FILTRATION RATE > 60 ML/MIN (60-); GLUCOSE 163 mg/dL (74-118); POTASSIUM 4.1 mmol/L (3.5-5.1); SODIUM 139 mmol/L (136-145)
[2020-10-18] MEDS: ASCORBIC ACID 500 MG TAB PO SCH ×2 (09:42→16:40)
[2020-10-18] MEDS: APIXAB 2.5 MG TABLET PO SCH ×2 (09:42→16:40)
[2020-10-18] MEDS: CHOLECALCIFEROL 400 UNIT TAB PO SCH (09:42)
[2020-10-18] MEDS: ZINC SULFATE 50 MG CAP PO SCH (09:42)
[2020-10-18] MEDS: INSULIN GLARGINE 100 UNITS/ML VIAL SQ SCH (20:43)
[2020-10-18] MEDS ORDERED: INSULIN GLARGINE 100 UNITS/ML VIAL SQ SCH (21:00)
[2020-10-19] VITALS (8 sets, daily range): BP systolic 103–130; BP diastolic 69–83
[2020-10-19] MEDS: LEVALBUTEROL 15 GM AERO IH SCH ×4 (01:00→19:30)
[2020-10-19] MEDS: IPRATROPIUM BROMIDE INHALER 12.9 GM INH INH SCH ×3 (05:07→21:24)
[2020-10-19] MEDS: INSULIN LISPRO 100 UNIT/1 ML 3ML VIAL SQ SCH ×3 (07:30→16:30)
[2020-10-19] MEDS: INSULIN REGULAR, HUMAN 100 UNIT/1 ML 3ML VIAL SQ SCH ×4 (07:30→19:48)
[2020-10-19] MEDS: ASCORBIC ACID 500 MG TAB PO SCH ×2 (08:52→16:36)
[2020-10-19] MEDS: APIXAB 2.5 MG TABLET PO SCH ×2 (08:52→16:36)
[2020-10-19] MEDS: CHOLECALCIFEROL 400 UNIT TAB PO SCH (08:52)
[2020-10-19] MEDS: ZINC SULFATE 220 MG CAP PO SCH (09:54)
[2020-10-19] MEDS: INSULIN GLARGINE 100 UNITS/ML VIAL SQ SCH (19:48)
[2020-10-20] VITALS (8 sets, daily range): BP systolic 105–121; BP diastolic 69–84
[2020-10-20] MEDS: LEVALBUTEROL 15 GM AERO IH SCH ×5 (01:00→19:00)
[2020-10-20] MEDS: IPRATROPIUM BROMIDE INHALER 12.9 GM INH INH SCH ×3 (05:50→21:29)
[2020-10-20] MEDS: ASCORBIC ACID 500 MG TAB PO SCH ×2 (08:46→17:11)
[2020-10-20] MEDS: CHOLECALCIFEROL 400 UNIT TAB PO SCH (08:46)
[2020-10-20] MEDS: APIXAB 2.5 MG TABLET PO SCH ×2 (08:46→17:11)
[2020-10-20] MEDS: ZINC SULFATE 220 MG CAP PO SCH (08:46)
[2020-10-20] MEDS: INSULIN LISPRO 100 UNIT/1 ML 3ML VIAL SQ SCH ×3 (09:17→17:10)
[2020-10-20] MEDS: INSULIN REGULAR, HUMAN 100 UNIT/1 ML 3ML VIAL SQ SCH ×4 (09:17→21:31)
[2020-10-20] MEDS: INSULIN GLARGINE 100 UNITS/ML VIAL SQ SCH (21:30)
[2020-10-21] VITALS (8 sets, daily range): BP systolic 94–108; BP diastolic 64–83
[2020-10-21] MEDS: LEVALBUTEROL 15 GM AERO IH SCH ×4 (00:43→19:44)
[2020-10-21] MEDS: IPRATROPIUM BROMIDE INHALER 12.9 GM INH INH SCH ×3 (06:03→22:00)
[2020-10-21] MEDS: INSULIN LISPRO 100 UNIT/1 ML 3ML VIAL SQ SCH ×3 (08:22→16:30)
[2020-10-21] MEDS: INSULIN REGULAR, HUMAN 100 UNIT/1 ML 3ML VIAL SQ SCH ×4 (08:22→20:47)
[2020-10-21] MEDS: CHOLECALCIFEROL 400 UNIT TAB PO SCH (10:27)
[2020-10-21] MEDS: APIXAB 2.5 MG TABLET PO SCH ×2 (10:27→17:01)
[2020-10-21] MEDS: ASCORBIC ACID 500 MG TAB PO SCH ×2 (10:27→17:01)
[2020-10-21] MEDS: ZINC SULFATE 220 MG CAP PO SCH (10:27)
[2020-10-21] MEDS: INSULIN GLARGINE 100 UNITS/ML VIAL SQ SCH (20:46)
[2020-10-22] VITALS (8 sets, daily range): BP systolic 95–117; BP diastolic 62–83
[2020-10-22] MEDS: LEVALBUTEROL 15 GM AERO IH SCH ×4 (00:28→20:25)
[2020-10-22] MEDS: IPRATROPIUM BROMIDE INHALER 12.9 GM INH INH SCH ×3 (06:48→22:00)
[2020-10-22] MEDS: INSULIN LISPRO 100 UNIT/1 ML 3ML VIAL SQ SCH ×3 (08:20→16:30)
[2020-10-22] MEDS: INSULIN REGULAR, HUMAN 100 UNIT/1 ML 3ML VIAL SQ SCH ×4 (08:21→21:40)
[2020-10-22] MEDS: GUAIFENESIN 600 MG TAB PO SCH ×2 (08:43→16:42)
[2020-10-22] MEDS: LORATADINE/PSEUDOEPHEDRINE 24 HR SR TAB PO SCH ×2 (08:43→09:04)
[2020-10-22] MEDS: FLUTICASONE PROPIONATE NASAL SPRAY NS SCH ×2 (09:00→16:34)
[2020-10-22] MEDS: ASCORBIC ACID 500 MG TAB PO SCH ×2 (09:04→16:42)
[2020-10-22] MEDS: CHOLECALCIFEROL 400 UNIT TAB PO SCH (09:04)
[2020-10-22] MEDS: ZINC SULFATE 220 MG CAP PO SCH (09:04)
[2020-10-22] MEDS: APIXAB 2.5 MG TABLET PO SCH ×2 (09:04→16:42)
[2020-10-22] MEDS: ALPRAZOLAM 0.25 MG TAB PO PRN (21:00)
[2020-10-22] MEDS: INSULIN GLARGINE 100 UNITS/ML VIAL SQ SCH (21:00)
[2020-10-23] VITALS: BP 99/70
[2020-10-23] MEDS: LEVALBUTEROL 15 GM AERO IH SCH (01:00)
[2020-10-23 04:00] VITALS: BP 94/62
[2020-10-23 08:00] VITALS: BP 99/72
[2020-10-23] MEDS: CHOLECALCIFEROL 400 UNIT TAB PO SCH (08:43)
[2020-10-23] MEDS: APIXAB 2.5 MG TABLET PO SCH (08:43)
[2020-10-23] MEDS: IPRATROPIUM BROMIDE INHALER 12.9 GM INH INH SCH (08:43)
[2020-10-23] MEDS: LORATADINE/PSEUDOEPHEDRINE 24 HR SR TAB PO SCH (08:43)
[2020-10-23] MEDS: FLUTICASONE PROPIONATE NASAL SPRAY NS SCH (08:43)
[2020-10-23] MEDS: GUAIFENESIN 600 MG TAB PO SCH (08:43)
[2020-10-23] MEDS: ASCORBIC ACID 500 MG TAB PO SCH (08:43)
[2020-10-23] MEDS: ZINC SULFATE 220 MG CAP PO SCH (08:43)
[2020-10-23] MEDS: INSULIN LISPRO 100 UNIT/1 ML 3ML VIAL SQ SCH ×2 (08:58→12:01)
[2020-10-23 09:00] VITALS: BP 99/72
[2020-10-23] MEDS: INSULIN REGULAR, HUMAN 100 UNIT/1 ML 3ML VIAL SQ SCH ×2 (09:00→12:01)
[2020-10-23] MEDS ORDERED: VITAMIN C500 M2 PO (10:53)
[2020-10-23] MEDS ORDERED: VIBRAMYCIN100 MG PO (10:54)
[2020-10-23] MEDS ORDERED: ALBUTEROL1.25 MG/3 NEB (10:54)
[2020-10-23] MEDS ORDERED: ELIQUIS2.5 MG PO (10:55)
[2020-10-23] MEDS ORDERED: HUMULIN R100 UNIT/2 SC (10:55)
[2020-10-23] MEDS ORDERED: VITAMIN D3 COM1 EACH PO (10:56)
[2020-10-23] MEDS ORDERED: TESSALON PERLE100 MG PO (10:56)
[2020-10-23] MEDS ORDERED: CLARITIN-D 241 EACH PO (10:57)
[2020-10-23 12:00] VITALS: BP 119/74
== END 2020-10-23 12:50 | disposition home or self-care (01) | DRG 177 ==
LOC: ER 18:00 → ERHOLD 20:37 → MED/SURG2 09-28 09:13 → ERHOLD 09-28 09:13 → ICU 09-28 14:08 → IMCU 10-11 12:20
PROVIDERS: ADMIT Internal Medicine; ATTEND Internal Medicine
PROC: 8E0ZXY6 Isolation (ICD-10-PCS; principal; 2020-09-27)
PROC: XW033E5 Introduction of Remdesivir Anti-infective into Peripheral Vein, Percutaneous Approach, New Technology Group 5 (ICD-10-PCS; 2020-09-27)
PROC: 02HV33Z Insertion of Infusion Device into Superior Vena Cava, Percutaneous Approach (ICD-10-PCS; 2020-09-28)
DX: U07.1 COVID-19 (principal); E11.10 Type 2 diabetes mellitus with ketoacidosis without coma; J96.01 Acute respiratory failure with hypoxia; J12.82 Pneumonia due to coronavirus disease 2019; J15.9 Unspecified bacterial pneumonia; Z68.43 Body mass index [BMI] 50.0-59.9, adult; E87.2 Acidosis; E66.01 Morbid (severe) obesity due to excess calories; E87.6 Hypokalemia
CPT/HCPCS: 36415; 36569; 36600; 71045; 80048; 80053; 81001; 81025; 82550; 82553; 82805; 82948; 83036; 83735; 84100; 84132; 84439; 84484; 85025; 85610; 85730; 87086; 96372; 97139; 99251; 99285; J0456; J0696; J1100; J1650; J1815; J1817; J2060; J2405; J3480; J7030; J7050; U0002